=== PATIENT | male | born 1950 | race Hispanic/Latino ===

== ENCOUNTER → 2019-06-28 | Outpatient (CLI) | payer MEDICARE ==
[~2019-06-28] MED LIST: ALBUMIN 25% 12.5GM 50ML 200 ML IV ONE
[2019-06-28 09:23] LABS: INR 1.27; PROTHROMBIN TIME 16.7 seconds (11.9-14.5)
[2019-06-28 09:24] LABS: PARTIAL THROMBOPLASTIN TIME 38.3 seconds (23.8-35.5)
--- NOTE | 2019-06-28 11:27 | Diagnostic Imaging Report ---
PROCEDURE: Ultrasound-guided paracentesis Procedural Personnel Attending physician(s): Aysha Maynard MD Pre-procedure diagnosis: Cirrhosis, ascites Post-procedure diagnosis: Same Indication: Ascites with pain or pressure symptoms Additional clinical history: None Complications: No immediate complications. IMPRESSION: Ultrasound-guided paracentesis with drainage of 6350 mL of serous fluid. Plan: Resume care by clinical team. PROCEDURE SUMMARY: - Limited abdominal ultrasound - Ultrasound-guided paracentesis - Additional procedure(s): None PROCEDURE DETAILS: Pre-procedure Consent: Informed consent for the procedure including risks, benefits and alternatives was obtained and time-out was performed prior to the procedure. Preparation: The site was prepared and draped using maximal sterile barrier technique including cutaneous antisepsis. Anesthesia/sedation Level of anesthesia/sedation: No sedation Anesthesia/sedation administered by: Not applicable Total intra-service sedation time (minutes): N/A Initial abdominal ultrasound Initial abdominal ultrasound was performed. Findings: Large ascites. A safe window for paracentesis was identified. Paracentesis Local anesthesia was administered. The peritoneal cavity was accessed and fluid return confirmed position. Ascites was drained. The catheter was then removed, and a sterile bandage was applied. Paracentesis access technique: Real-time ultrasound guidance Catheter placed: 5F Yueh Post-drainage ultrasound: No visible ascites Additional Details Additional description of procedure: None Equipment details: None Specimens removed: Abdominal fluid Estimated blood loss (mL): Less than 10 Standardized report: [email or web address] Attestation Signer name: Aysha Maynard MD I attest that I was present for the entire procedure. I reviewed the stored images and agree with the report as written. Signed by: Aysha Maynard MD on 06/28/2019 11:25 AM
[2019-06-28 13:28] LABS: BODY FLUID APPEARANCE CLEAR; BODY FLUID COLOR YELLOW
[2019-06-28 13:29] LABS: RBC,BODY FLUID 130 cells/uL; WBC,BODY FLUID 267 cells/uL
[2019-06-28 17:23] LABS: LYMPHOCYTES,BODY FLUID 75 %; MONO/MACROPHG,BODY FLUID 2 %; NEUTROPHILS,BODY FLUID 4 %; OTHER CELLS,BODY FLUID 19 %
== END ==
LOC: US 08:15
PROVIDERS: ATTEND Internal Medicine Gastroenterology
DX: K72.90 Hepatic failure, unspecified without coma (principal); K74.60 Unspecified cirrhosis of liver
CPT/HCPCS: 36415; 49083; 82040; 84157; 85014; 85049; 85610; 85730; 87070; 87205; 88112; 88305; 89051